=== PATIENT | female | born 2000 | race Caucasian/White ===

== ENCOUNTER 2024-05-21 21:37 | Emergency (ER) | payer SELFPAY ==
[2024-05-21 21:45] VITALS: BP 117/80; PULSE 76; RESP 16; TEMP 36.7; O2SAT 97; BMI 23.0
[2024-05-21 22:39] LABS: Basophils # 0.1 10^3/uL (0.0-0.1); Basophils % 0.6 %; Eosinophils # 0.3 10^3/uL (0.0-0.8); Eosinophils % 2.4 %; Hematocrit 46.8 % (36-47); Lymphocytes # 2.2 10^3/uL (0.8-4.8); Lymphocytes % 16.1 %; Mean Corpuscular HGB Conc 32.5 g/dL (30-55); Mean Corpuscular Hemoglobin 28.3 pg (27-33); Mean Corpuscular Volume 87.2 fl (85-98); Mean Platelet Volume 8.3 fL (7.4-10.4); Monocytes # 0.6 10^3/uL (0.2-0.9); Monocytes % 4.3 %; Neutrophils # 10.36 10^3/uL (1.8-7.7); Neutrophils % 76.2 %; Nucleated Red Blood Cells % 0 %; Platelet Count 365 10^3/cmm (157-399); Red Blood Count 5.37 10^6/uL (3.85-5.65); Red Cell Distribution Width 12.6 % (12.1-15.1)
[2024-05-21 22:51] LABS: Alanine Aminotransferase 6 U/L (0-33); Albumin Level 4.7 g/dL (3.5-5.2); Alkaline Phosphatase 97 U/L (35-105); Anion Gap 22.1 (5-19); Aspartate Amino Transferase 11 U/L (0-32); Blood Urea Nitrogen 9 mg/dL (6-20); Calcium 9.8 mg/dL (8.5-10.5); Carbon Dioxide 20 mmol/L (22-29); Chloride 100 mmol/L (98-107); Globulin 3.5 g/dL (1.3-4.6); Glucose 90 mg/dL (65-115); Lipase 24 U/L (13-60); Osmolality Calculated 284 mOsm/kg (285-295); Potassium 4.1 mmol/L (3.5-5.1); Sodium 138 mmol/L (136-145); Total Bilirubin 0.4 mg/dL (0.15-1.2); Total Protein 8.2 g/dL (6.6-8.7)
[2024-05-22 02:55] LABS: HCG, Serum Qual Negative (Negative)
--- NOTE | 2024-05-22 02:56 | W.ED.ABDPA2 ---
HPI - Abdominal Pain General: Chief Complaint: Abdominal Pain Stated Complaint: Vommiting,headache Time Seen by Provider: 05/22/24 02:34 History of Present Illness: 23-year-old female who presents emergency room with nausea vomiting and left upper quadrant pain that has been going on for couple of days now. She says he is had episodes of this for some time now. She had seen her doctor from where she moved a few times and they just told her that it was acute abdominal illness. She says she has not Anything down for 2 days. She is having some left upper quadrant abdominal pain. No known fevers. No altered mental status. Related Data Previous Rx's Medication Instructions Recorded diclofenac sodium 50 mg 50 mg PO BID PRN pain #14 tabs 05/22/24 tablet,delayed release ondansetron 4 mg disintegrating 4 mg PO Q8H PRN nausea and 05/22/24 tablet vomiting #10 tabs promethazine 25 mg rectal 25 mg ID Q6H PRN nausea and 05/22/24 suppository vomiting #12 ea Allergies Allergy/AdvReac Type Severity Reaction Status Date / Time Penicillins Allergy ALGY-Rash Verified 05/21/24 21:50 Review of Systems Narrative: Constitutional symptoms: Negative except as documented in HPI. Skin symptoms: Negative except as documented in HPI. Eye symptoms: Negative except as documented in HPI. ENMT symptoms: Negative except as documented in HPI. Respiratory symptoms: Negative except as documented in HPI. Cardiovascular symptoms: Negative except as documented in HPI. Gastrointestinal symptoms: Negative except as documented in HPI. Genitourinary symptoms: Negative except as documented in HPI. Musculoskeletal symptoms: Negative except as documented in HPI. Neurologic symptoms: Negative except as documented in HPI. Psychiatric symptoms: Negative except as documented in HPI. Endocrine symptoms: Negative except as documented in HPI. Physical Exam Narrative: EXAM NARRATIVE: General: Alert, no acute distress. Skin: Warm, dry. Head: Normocephalic, atraumatic. Neck: Supple, trachea midline. Eye: Extraocular movements are intact. Ears, nose, mouth and throat: Tacky oral mucosa Cardiovascular: Regular, Normal peripheral perfusion. Respiratory: Lungs are clear to auscultation, respirations are non-labored, breath sounds are equal, Symmetrical chest wall expansion. Gastrointestinal: Soft, left upper quadrant tenderness, Non distended Musculoskeletal: Normal ROM, no deformity. Neurological: Alert and oriented, No focal neurological deficit observed. Psychiatric: Cooperative, appropriate mood & affect. Course Vital Signs: Vital signs: Vital Signs Temperature 98.0 F 05/21/24 21:45 Pulse Rate 76 05/21/24 21:45 Respiratory Rate 16 05/21/24 21:45 Blood Pressure 117/80 05/21/24 21:45 Pulse Oximetry 97 05/21/24 21:45 Oxygen Delivery Me thod Room Air 05/21/24 21:45 MDM - Abdominal Pain Medical Decision Making Lab Review: Laboratory results were reviewed and interpreted by myself the emergency room physician. Mild leukocytosis. No renal failure. Patient does not provide a urine. She does not want an IV or an IV contrasted CT or fluids. She is tolerating fluids with p.o. Zofran. Assessment and plan: Recurrent vomiting ?P.o. Zofran in the emergency room. - Discharged home - Discussed plan with patient. Answered any questions. - Evaluation and treatment of this problem were appropriate in the emergency setting. Lab Data 05/21/24 22:23 05/21/24 22:23 Labs/Radiology: Laboratory Results WBC 13.60 10^3/uL (3.29-11.43) H 05/21/24 22:23 RBC 5.37 10^6/uL (3.85-5.65) 05/21/24 22:23 Hgb 15.20 g/dL (11.27-16.99) 05/21/24 22:23 Hct 46.8 % (36-47) 05/21/24 22:23 MCV 87.2 fl (85-98) 05/21/24 22:23 MCH 28.3 pg (27-33) 05/21/24 22:23 MCHC 32.5 g/dL (30-55) 05/21/24 22:23 RDW 12.6 % (12.1-15.1) 05/21/24 22:23 Plt Count 365 10^3/cmm (157-399) 05/21/24 22:23 MPV 8.3 fL (7.4-10.4) 05/21/24 22:23 Neut % (Auto) 76.2 % 05/21/24 22:23 Lymph % (Auto) 16.1 % 05/21/24 22:23 Elk % (Auto) 4.3 % 05/21/24 22:23 Eos % (Auto) 2.4 % 05/21/24 22:23 Baso % (Auto) 0.6 % 05/21/24 22:23 Neut # (Auto) 10.36 10^3/uL (1.8-7.7) H 05/21/24 22:23 Lymph # (Auto) 2.2 10^3/uL (0.8-4.8) 05/21/24 22:23 Elk # (Auto) 0.6 10^3/uL (0.2-0.9) 05/21/24 22:23 Eos # (Auto) 0.3 10^3/uL (0.0-0.8) 05/21/24 22:23 Baso # (Auto) 0.1 10^3/uL (0.0-0.1) 05/21/24 22:23 Nucleated RBC % (auto) 0 % 05/21/24 22:23 Nucleated RBCs # 0.0 /100WBC 05/21/24 22:23 Sodium 138 mmol/L (136-145) 05/21/24 22:23 Potassium 4.1 mmol/L (3.5-5.1) 05/21/24 22:23 Chloride 100 mmol/L (98-107) 05/21/24 22:23 Carbon Dioxide 20 mmol/L (22-29) L 05/21/24 22:23 Anion Gap 22.1 (5-19) H 05/21/24 22:23 BUN 9 mg/dL (6-20) 05/21/24 22:23 Creatinine 0.6 mg/dL (0.5-0.9) 05/21/24 22:23 GFR Calculation 125.0 mL/min (90-130) 05/21/24 22:23 Glucose 90 mg/dL (65-115) 05/21/24 22:23 Calculated Osmolality 284 mOsm/kg (285-295) L 05/21/24 22:23 Calcium 9.8 mg/dL (8.5-10.5) 05/21/24 22:23 Total Bilirubin 0.4 mg/dL (0.15-1.2) 05/21/24 22:23 AST 11 U/L (0-32) 05/21/24 22:23 ALT 6 U/L (0-33) 05/21/24 22:23 Alkaline Phosphatase 97 U/L (35-105) 05/21/24 22:23 Total Protein 8.2 g/dL (6.6-8.7) 05/21/24 22:23 Albumin 4.7 g/dL (3.5-5.2) 05/21/24 22:23 Globulin 3.5 g/dL (1.3-4.6) 05/21/24 22:23 Lipase 24 U/L (13-60) 05/21/24 22:23 HCG, Qual Negative (Negative) 05/21/24 22:23 No radiology studies performed this visit Discharge Plan Discharge Patient Disposition: Home Clinical Impression: Abdominal pain, Recurrent vomiting Condition: Stable Prescriptions: New promethazine 25 mg suppository 25 mg ID Q6H PRN (Reason: nausea and vomiting) Qty: 12 0RF diclofenac sodium 50 mg tablet,delayed release (DR/EC) 50 mg PO BID PRN (Reason: pain) Qty: 14 0RF ondansetron 4 mg tablet,disintegrating 4 mg PO Q8H PRN (Reason: nausea and vomiting) Qty: 10 0RF Discharge Orders: Discharge ED (Routine); Ordered 05/22/24 Ordered By: Gricel Rich Discharge Diet: Advance as tolerated Discharge Activity: Increase activity as tolerated Patient Instructions: Abdominal Pain (ED), Opioid Safety, Pain Management Activity Restrictions/Additional Instructions: Thank you for choosing [facility] for your healthcare needs today. Please realize this is an emergency room and that we are providing you with a medical screening exam and this may not be complete and all inclusive of all the testing and or work up that you may need to determine your ailment or severity of your illness. You have been screened and evaluated and felt safe for discharge. Health conditions do change or evolve sometimes and as such it is important that you follow up with your Primary Doctor to be re checked, 3-5 days is a general good time frame for follow up. You are always welcome to return to the ED for re assessment if your symptoms are worsening or you have new concerns Coding Level of Care Code ED Performance Improvement Consultant for Yoli Milligan
[2024-05-22] MEDS: ondansetron 4 MG Tablet 8 MG PO (03:10)
--- NOTE | 2024-05-22 03:37 | PC.NURSE ---
pt refused IV and IV meds. notified.
[2024-05-22 03:49] VITALS: BP 104/66; PULSE 84; O2SAT 99
[2024-05-22 04:07] VITALS: BP 104/66; PULSE 84; O2SAT 99
== END 2024-05-22 04:04 | disposition home or self-care (01) ==
PROVIDERS: Emergency Provider Emergency Medicine
DX: R10.9 Unspecified abdominal pain (principal); R11.10 Vomiting, unspecified
CPT/HCPCS: 36415; 80053; 83690; 84703; 85025; 99283; Q0162